=== PATIENT | male | born 1975 | race Caucasian/White ===

== ENCOUNTER → 2017-03-26 | Outpatient (CLI) | payer OTHER ==
[2017-03-26 10:09] LABS: HEMOGLOBIN 14.9 gm/dl (14.0-17.5); RED BLOOD COUNT 4.8 M/UL (4.20-5.50); WHITE BLOOD COUNT 7.1 K/UL (4.5-11.0)
[2017-03-26 10:29] LABS: BUN/CREATININE RATIO 14 (0-10)
== END ==
LOC: LAB 08:51
PROVIDERS: Family Medicine Hospice and Palliative Medicine
DX: R53.83 Other fatigue (principal); E78.5 Hyperlipidemia, unspecified; I10 Essential (primary) hypertension; J30.9 Allergic rhinitis, unspecified
CPT/HCPCS: 36415; 80053; 80061; 84439; 84443; 84480; 85027

== ENCOUNTER → 2020-12-18 | Outpatient (CLI) | payer OTHER ==
[2020-12-19 08:14] LABS: TESTOSTERONE, SERUM 367 ng/dL (264-916)
== END ==
LOC: LAB 12:09
PROVIDERS: Family Medicine Hospice and Palliative Medicine
DX: E29.1 Testicular hypofunction (principal)
CPT/HCPCS: 36415; 84403